=== PATIENT | female | born 1930 | race Caucasian/White ===

== ENCOUNTER 2016-06-13 09:00 | Emergency (ER) | payer MEDICARE, OTHER ==
[~2016-06-13 09:00] MED LIST: A/D ZINC OXI TOP; ACET500CAP PO; ALAVERT10 MG PO; ALTA2.5 PO; AMB5 PO; APRES25 PO; ARMOUR THYRO60 MG PO; ARMOUR THYROID; ASAB PO; Armour Thyroid; B COMPLETE PO; B COMPLEX-C PO; BAYER500 MG PO; BETAPACE80 PO; BRILINTA90 MG PO; BUM2 PO; C1 PO; C2 PO; C25 PO; CALCIUM PO; CARD30 PO; CAT2 PO; COLCH6 PO; COUMADIN3 MG PO; COUMADIN4 MG PO; Calcium PO; DIGITEK0.125 MG PO; FISH-EPA1000 MG PO; FLAG500TAB PO; FLORASTOR250 MG PO; GLUCXL2.5 PO; HALF81 PO; HUMULIN R1 ML SC; JANTOVEN2 MG PO; KLOR-CON 1010 MEQ PO; KLOR-CON20 MEQ PO; KRILL OIL PO; L40 PO; LEVOTHROID25 MCG PO; LOP25 PO; LOP50 PO; MONISTAT 3 VA; MULTIPLE VIT PO; NEPHRO-VITE PO; NEUR100 PO; NITROII5C TOP; NORV5 PO; OCEAN NAS; OS500+D PO; P10 PO; P20 PO; PLAVIX PO; PREM625 PO; PREVALITE4 G1 PO; PROBIOTIC PO; PROTONIX PO; REFRESH OPH; SENTAB PO; T PO; THERGRANM PO; TIROSINT; TIROSINT88 MCG PO; UNKNOWN INSULIN; VANCOCIN HCL125 MG PO; VANCOMYCIN; VITAMIN A PO; VITAMIN B PO; VITAMIN D PO; VITAMIN D1000 UNI1 PO; VITAMIN D400 UNI1 PO; VITC500 PO; Z100 PO; ZANTAC150 MG PO; ZOCOR20 PO; ZOCOR40 PO; ZOFRAN4 PO
[2016-06-13 09:31] LABS: BASOPHILS 0.4 %; BASOPHILS ABSOLUTE 0.03 10/3/uL (0.0-0.16); EOSINOPHILS 1.5 %; EOSINOPHILS ABSOLUTE 0.13 10/3/uL (0.0-0.53); ER CBC TAT 0 Hrs 07 Mins; HEMATOCRIT 35.6 % (36.0-48.0); HEMOGLOBIN 11.5 g/dL (12.0-16.0); IMMATURE GRANULOCYTES 0.4 %; IMMATURE GRANULOCYTES ABSOLUTE 0.03 10/3/uL (0.0-0.11); LYMPHOCYTES 20.7 %; LYMPHOCYTES ABSOLUTE 1.76 10/3/uL (0.67-4.30); MEAN CORPUS HGB CONC 32.3 g/dL (32.0-36.0); MEAN CORPUSCULAR HEMOGLOB 31.1 pg (26.0-34.0); MEAN CORPUSCULAR VOLUME 96.2 fL (80-100); MEAN PLATELET VOLUME 8.8 fL (9.2-13.0); MONOCYTES 7.5 %; MONOCYTES ABSOLUTE 0.64 10/3/uL (0.21-1.20); NEUTROPHILS 69.5 %; PLATELET COUNT 226 10/3/uL (150-400); RBC DISTRIBUTION WIDTH 15.7 % (12.0-16.0); WHITE BLOOD CELLS 8.5 10/3/uL (4.5-10.5)
[2016-06-13 09:32] LABS: MANUAL DIFF NO %
[2016-06-13 09:39] LABS: INTERNATIONAL NORMAL RATI 2.2 UNITS (-); PARTIAL THROMBO TIME 38.3 SEC (22.5-37.2); PROTIME (NOT ORD) 23.9 SEC (12.0-14.5)
[2016-06-13 09:49] LABS: A/G RATIO 0.8 (0.7-1.9); ALBUMIN 3.2 G/DL (3.5-5.0); ALKALINE PHOSPHATASE 75 U/L (45-117); BUN (BLOOD UREA NITROGEN) 43 MG/DL (6-23); CALCIUM, SERUM 9.4 MG/DL (8.5-10.4); CHLORIDE, SERUM 104 MMOL/L (96-112); CO2 (CARBON DIOXIDE) 31 MMOL/L (24-34); CREATININE 1.71 MG/DL (0.55-1.02); GFR AFRICAN AMERICAN 31 ML/MIN (>=60); GFR NON AFRICAN AMERICAN 27 ML/MIN (>=60); GLOBULIN 4.2 G/DL (2.5-4.1); GLUCOSE, SERUM 152 MG/DL (60-99); SGOT(AST) 15 U/L (5-40); SGPT(ALT) 17 U/L (5-65); SODIUM, SERUM 140 MMOL/L (135-148); TOTAL BILIRUBIN 0.3 MG/DL (0-1.2); TOTAL PROTEIN 7.4 G/DL (6.0-8.5); TROPONIN I <0.02 NG/ML (<0.05)
[2016-06-13 11:13] LABS: ASCORBIC ACID (UR NOT ORDER) 20 (NEG); BILIRUBIN, URINE NEGATIVE (NEG); ER URINALYSIS TAT 0 Hrs 13 Mins; KETONE, URINE NEGATIVE (NEG); LEUKOCYTE ESTERASE(NOT OR SMALL (NEG); NITRITE (URINE) NEG (NEG); WBC (NOT ORDERED) (RFLEX) 6 (0-5)
== END 2016-06-13 17:13 | disposition home or self-care (01) ==
LOC: ER 09:00
PROVIDERS: Nurse Practitioner Acute Care
DX: R10.9 Unspecified abdominal pain (principal); B96.89 Other specified bacterial agents as the cause of diseases classified elsewhere; I48.91 Unspecified atrial fibrillation; N18.9 Chronic kidney disease, unspecified; E11.9 Type 2 diabetes mellitus without complications; Z95.5 Presence of coronary angioplasty implant and graft; Z95.1 Presence of aortocoronary bypass graft
CPT/HCPCS: 36415; 74176; 80053; 81001; 82962; 84484; 85025; 85610; 85730; 86850; 86900; 86901; 87077; 87086; 87186; 87493; 87493-59; 99285

== ENCOUNTER 2016-06-17 16:31 | Emergency (ER) | payer MEDICARE, OTHER ==
[2016-06-17 16:50] LABS: WBC (NOT ORDERED) (RFLEX) 0 (0-5)
[2016-06-17 16:53] LABS: BASOPHILS 0.2 %; BASOPHILS ABSOLUTE 0.03 10/3/uL (0.0-0.16); EOSINOPHILS ABSOLUTE 0.12 10/3/uL (0.0-0.53); HEMATOCRIT 33.6 % (36.0-48.0); HEMOGLOBIN 10.8 g/dL (12.0-16.0); IMMATURE GRANULOCYTES 0.2 %; IMMATURE GRANULOCYTES ABSOLUTE 0.03 10/3/uL (0.0-0.11); LYMPHOCYTES 13.9 %; LYMPHOCYTES ABSOLUTE 1.69 10/3/uL (0.67-4.30); MEAN CORPUS HGB CONC 32.1 g/dL (32.0-36.0); MEAN CORPUSCULAR HEMOGLOB 30.5 pg (26.0-34.0); MEAN CORPUSCULAR VOLUME 94.9 fL (80-100); MEAN PLATELET VOLUME 8.8 fL (9.2-13.0); MONOCYTES 6.5 %; MONOCYTES ABSOLUTE 0.79 10/3/uL (0.21-1.20); NEUTROPHILS 78.2 %; NEUTROPHILS ABSOLUTE 9.47 10/3/uL (2.02-8.40); PLATELET COUNT 223 10/3/uL (150-400); RED CELL COUNT 3.54 10/6/uL (4.0-5.6)
[2016-06-17 16:54] LABS: ER CBC TAT 0 Hrs 05 Mins; MANUAL DIFF NO %; WHITE BLOOD CELLS 12.1 10/3/uL (4.5-10.5)
[2016-06-17 16:58] LABS: ASCORBIC ACID (UR NOT ORDER) 40 (NEG); BILIRUBIN, URINE NEGATIVE (NEG); ER URINALYSIS TAT 0 Hrs 09 Mins; KETONE, URINE NEGATIVE (NEG); LEUKOCYTE ESTERASE(NOT OR NEG (NEG); NITRITE (URINE) NEG (NEG)
[2016-06-17 17:08] LABS: A/G RATIO 0.8 (0.7-1.9); ALBUMIN 3.2 G/DL (3.5-5.0); ALKALINE PHOSPHATASE 65 U/L (45-117); BUN (BLOOD UREA NITROGEN) 37 MG/DL (6-23); CALCIUM, SERUM 8.7 MG/DL (8.5-10.4); CHLORIDE, SERUM 108 MMOL/L (96-112); CO2 (CARBON DIOXIDE) 26 MMOL/L (24-34); CREATININE 1.65 MG/DL (0.55-1.02); GFR AFRICAN AMERICAN 33 ML/MIN (>=60); GFR NON AFRICAN AMERICAN 28 ML/MIN (>=60); GLOBULIN 3.9 G/DL (2.5-4.1); GLUCOSE, SERUM 161 MG/DL (60-99); POTASSIUM, SERUM 3.5 MMOL/L (3.5-5.3); SGOT(AST) 13 U/L (5-40); SGPT(ALT) 15 U/L (5-65); SODIUM, SERUM 143 MMOL/L (135-148); TOTAL BILIRUBIN 0.2 MG/DL (0-1.2); TOTAL PROTEIN 7.1 G/DL (6.0-8.5)
== END 2016-06-17 18:55 | disposition home or self-care (01) ==
LOC: ER 16:31
PROVIDERS: Emergency Medicine
DX: A04.7 Enterocolitis due to Clostridium difficile (principal); E11.22 Type 2 diabetes mellitus with diabetic chronic kidney disease; N18.9 Chronic kidney disease, unspecified; D72.829 Elevated white blood cell count, unspecified; Z95.5 Presence of coronary angioplasty implant and graft; Z95.1 Presence of aortocoronary bypass graft; Z88.0 Allergy status to penicillin; Z88.5 Allergy status to narcotic agent; Z88.8 Allergy status to other drugs, medicaments and biological substances; Z79.82 Long term (current) use of aspirin; Z79.899 Other long term (current) drug therapy
CPT/HCPCS: 80053; 81001; 83690; 85025; 87045; 87046; 87046-59; 87328; 87329; 87493; 87493-59; 87899; 87899-59; 89055; 99284; A9270-GY

== ENCOUNTER 2016-07-05 00:20 | Emergency (ER) | payer MEDICARE, OTHER ==
[2016-07-05 01:45] LABS: BASOPHILS 0.4 %; BASOPHILS ABSOLUTE 0.04 10/3/uL (0.0-0.16); EOSINOPHILS 2.8 %; EOSINOPHILS ABSOLUTE 0.25 10/3/uL (0.0-0.53); ER CBC TAT 0 Hrs 03 Mins; HEMATOCRIT 34.6 % (36.0-48.0); HEMOGLOBIN 11.1 g/dL (12.0-16.0); IMMATURE GRANULOCYTES 0.1 %; IMMATURE GRANULOCYTES ABSOLUTE 0.01 10/3/uL (0.0-0.11); LYMPHOCYTES 17.9 %; LYMPHOCYTES ABSOLUTE 1.61 10/3/uL (0.67-4.30); MEAN CORPUS HGB CONC 32.1 g/dL (32.0-36.0); MEAN CORPUSCULAR HEMOGLOB 31.4 pg (26.0-34.0); MEAN CORPUSCULAR VOLUME 97.7 fL (80-100); MEAN PLATELET VOLUME 9.7 fL (9.2-13.0); MONOCYTES 7.3 %; MONOCYTES ABSOLUTE 0.66 10/3/uL (0.21-1.20); NEUTROPHILS 71.5 %; NEUTROPHILS ABSOLUTE 6.44 10/3/uL (2.02-8.40); PLATELET COUNT 193 10/3/uL (150-400); RBC DISTRIBUTION WIDTH 16.4 % (12.0-16.0); RED CELL COUNT 3.54 10/6/uL (4.0-5.6)
[2016-07-05 01:47] LABS: MANUAL DIFF NO %
[2016-07-05 01:53] LABS: INTERNATIONAL NORMAL RATI 2.7 UNITS (-); PARTIAL THROMBO TIME 44.4 SEC (22.5-37.2)
[2016-07-05 01:55] LABS: PROTIME (NOT ORD) 28.7 SEC (12.0-14.5)
[2016-07-05 02:09] LABS: CALCIUM, SERUM 8.8 MG/DL (8.5-10.4); CHEST PAIN PROFILE TAT 0 Hrs 27 Mins; CHLORIDE, SERUM 109 MMOL/L (96-112); CO2 (CARBON DIOXIDE) 27 MMOL/L (24-34); CREATININE 1.29 MG/DL (0.55-1.02); GFR AFRICAN AMERICAN 44 ML/MIN (>=60); GFR NON AFRICAN AMERICAN 38 ML/MIN (>=60); GLUCOSE, SERUM 170 MG/DL (60-99); POTASSIUM, SERUM 3.7 MMOL/L (3.5-5.3); SODIUM, SERUM 147 MMOL/L (135-148); TROPONIN I <0.02 NG/ML (<0.05)
[2016-07-05 02:10] LABS: BUN (BLOOD UREA NITROGEN) 27 MG/DL (6-23)
== END 2016-07-05 05:53 | disposition home or self-care (01) ==
LOC: ER 00:20
PROVIDERS: Specialist
PROC: 2W3QX1Z Immobilization of Right Lower Leg using Splint (ICD-10-PCS; principal; 2016-07-05)
DX: M25.461 Effusion, right knee (principal); R60.0 Localized edema; Z86.718 Personal history of other venous thrombosis and embolism; E11.22 Type 2 diabetes mellitus with diabetic chronic kidney disease; I12.9 Hypertensive chronic kidney disease with stage 1 through stage 4 chronic kidney disease, or unspecified chronic kidney disease; N18.9 Chronic kidney disease, unspecified; D64.9 Anemia, unspecified; Z88.0 Allergy status to penicillin; Z88.5 Allergy status to narcotic agent; Z88.8 Allergy status to other drugs, medicaments and biological substances; Z88.6 Allergy status to analgesic agent; Z79.82 Long term (current) use of aspirin; Z79.899 Other long term (current) drug therapy; Z79.01 Long term (current) use of anticoagulants
CPT/HCPCS: 80048; 83735; 83880; 84484; 85025; 85610; 85730; 93005; 93971; 99285; A9270-GY

== ENCOUNTER 2016-07-23 10:24 | Inpatient (IN) | payer MEDICARE, OTHER ==
--- NOTE | ~2016-07-23 | HP ---
History And Physical [place] [address] [place]. [address] NAME: KASSIDY GARNER : 32 STATUS : ADM IN [facility]#: [id number] AGE: 85 ADM/REG DATE : 07/23/16 MR#: [id number] REPORT SERV DATE: 07/24/16 DICTATED BY: PATRIZIA ROBERTS DATE: 07/24/16 REPORT STATUS : Draft TRANSCRIBED BY: ANTOINE DATE: 07/24/16 DATE OF ADMISSION: 07/23/2016 CHIEF COMPLAINT: Right knee pain. HISTORY: This is an 85-year-old female who states "I have always had trouble with that knee" unfortunately over the last month with some twisting episodes, previously had an aspirate of the knee, attempted another ER about a month ago with no result. I have reviewed her chart at length and see if there is some concern for her leukocytosis and other concern for infection. She says actually her knee is somewhat better than it was a month ago. ALLERGIES: PENICILLIN, CODEINE, EPINEPHRINE, INDOMETHACIN, CLINORIL, LESCOL, DEMEROL, METFORMIN, AND CEFUROXIME. MEDICATIONS: See chart. PAST MEDICAL HISTORY: Migraines, cataracts wears glasses, CPAP and had a recurrent pneumonia, bronchitis, pleural effusions, coronary artery disease, hypertension, GERD, cellulitis, diabetes, and hypothyroidism. PAST SURGICAL HISTORY: Multiple include hysterectomy, endarterectomy, ectopic , heart stents, pacer placement in aortic valve, mitral valve, and bypass surgery x2. SOCIAL HISTORY: Social situation glasses. No cigarettes, alcohol, or illicit drug use. FAMILY HISTORY: No known anesthetic complications REVIEW OF SYSTEMS: As above. PHYSICAL EXAMINATION: GENERAL: She is alert and oriented x3, in no apparent distress. HEENT: Atraumatic, normocephalic. EXTREMITIES: Both upper extremities, left lower extremity without acute trauma. Right knee with moderate effusion, minimal warmth, and no erythema. Skin is intact. Compartment supple. She has severe pain with motion from 0 to 30. NEUROVASCULAR: Without deficit. ASSESSMENT: Right knee questionable sepsis. PLAN: I aspirated her right knee after sterile prep and got 10 mL of fluid which appeared to be shawn blood. There is no evidence of infection. Assessment is right knee hemarthrosis. History And Physical [facility] [address] [place]. [address] NAME: KASSIDY GARNER : 32 STATUS : ADM IN PAT#: [id number] AGE: 85 ADM/REG DATE : 07/23/16 MR#: [id number] REPORT SERV DATE: 07/24/16 DICTATED BY: PATRIZIA ROBERTS DATE: 07/24/16 REPORT STATUS : Draft TRANSCRIBED BY: MODL DATE: 07/24/16 I have recommended symptomatic management for this and evaluation elsewhere for her leukocytosis. WTB/MODL Mykel Roberts M.D. / [id number] CC: Johnnie King PA-C
--- NOTE | ~2016-07-23 | HP ---
History And Physical [place] [facility] [place]. [address] NAME: KASSIDY GARNER : 32 STATUS : ADM IN PAT#: [id number] AGE: 85 ADM/REG DATE : 07/23/16 MR#: [id number] REPORT SERV DATE: 07/23/16 DICTATED BY: ANNA DEWEY DATE: 07/23/16 REPORT STATUS : Draft TRANSCRIBED BY: MODL DATE: 07/23/16 DATE OF ADMISSION: 07/23/2016 REASON FOR ADMISSION: Leukocytosis, dehydration, [id number] renal failure. HISTORY OF PRESENT ILLNESS: This is an 85-year-old white female, who has been lethargic for the last two days. She has not eaten very much. She has continued to take her diuretics. Her became worried about it, he brought her in because of this, and creatinine was certainly elevated above 1.5 to 1.6 range, up to 2.04. She has a significant past medical history and has had C difficile colitis. Most recently, admitted for fecal transplantation, 12/18/2015 to 12/26/2015. Her medical history is complicated with an aortic valvular replacement with mechanical valve and she is on Coumadin for that. Her INR today has not yet been checked by Dr. Rodriguez, who initially evaluated in the emergency room. Dr. Rodriguez was concerned with the elevated white count. He ordered a CT scan of the abdomen that was unrevealing. Chest x-ray shows no infiltrate. says that she has been lethargic the last two days, sleepy, and cannot keep her awake to talk. She is not able to eat. She has not drunk anything in the last 24 hours as well, but she has had no vomiting or diarrhea. PAST MEDICAL HISTORY: She has a pacemaker placed in 2012 as well as the aortic valve and CABG. She has diabetes and is on medication. Her blood sugars usually run in the 130 to 150 range. She has no pain. No headache. No stiff neck. No fever, chills, or night sweats. SOCIAL HISTORY: She has been for 6 years to her present . She was for forty years prior to that. She has two children, they are estranged. She does not smoke or drink. She does not dip snuff. She is a member of the [employer]. She lives in [place]. FAMILY HISTORY: She had two brothers and four sisters. One sister of ovarian cancer, but nearly all the siblings had heart disease and as did mother and father. REVIEW OF SYSTEMS: She denies any eye pain, double vision, loss of vision. No neck stiffness, fever, chills, night sweats, melena, or hematemesis. Last bowel movement was 11 o'clock this morning. She has had some swelling in the lower extremity which is chronic, but no fits, seizures, convulsions, unilateral weakness, fever, chills, night sweats, nausea, vomiting, or diarrhea. History And Physical [address] [place]. [address] NAME: KASSIDY GARNER : 32 STATUS : ADM IN [facility]#: [id number] AGE: 85 ADM/REG DATE : 07/23/16 MR#: [id number] REPORT SERV DATE: 07/23/16 DICTATED BY: ANNA DEWEY DATE: 07/23/16 REPORT STATUS : Draft TRANSCRIBED BY: ANTOINE DATE: 07/23/16 The remainder of review of systems is negative. She has had no chest pain and is not short of breath. PHYSICAL EXAMINATION: GENERAL: Elderly white female, in no acute distress. HEENT: EOMI. Sclerae clear. Conjunctivae pink. NECK: No bruit. No JVD. CHEST: Clear to A and P. HEART: Irregularly irregular with prosthetic clicking. ABDOMEN: Soft and nontender. Bowel sounds are positive. EXTREMITIES: Have chronic edema in lower extremities with some stasis changes. No distal pulses are palpable. NEUROLOGIC: She moves to plantar stimulation. She is oriented to person, place, and time. She awakens. Speech is cogent, goal directed, somewhat lethargic in appearance. Her senior manufacturing supervisor is equal and symmetric. Coordination is intact. She has no tremor. Sensory is grossly intact bilaterally. LYMPHATICS: There is no adenopathy palpable. SKIN: Stasis changes lower extremities bilaterally. LABORATORY DATA: CT scan of the abdomen was done by Dr. Rodriguez that showed no evidence of any acute abnormality in the abdomen and pelvis. She does have cholecystectomy and hysterectomy in the past, diverticulosis without diverticulitis. Her urinalysis showed two white cells per high-powered field, nitrite negative, leukocyte esterase negative, specific gravity 1.016, pH 5. Portable chest x-ray showed no evidence of acute disease. The BNP was elevated at 387.8 and ammonia level was 21. Lactate level 1.6. The comprehensive metabolic panel showed sodium 137, potassium 3.8, creatinine 2.04, the BUN is 46, the glucose is 202. Albumin is 3.3 with globulin high at 4.3. Liver tests were normal. Troponin less than 0.02. EKG shows paced rhythm. Chest x-ray and EKG were reviewed by myself. ASSESSMENT: 1. Weakness and sleepiness four days building to present state. I believe she is dehydrated with increasing creatinine suspicious for renal failure. I am going to go ahead hold the lisinopril and the diuretics, hydrate gently with normal saline of 50 mL an hour. 2. Leukocytosis, 23,000, not apparent yet. We will check blood cultures, but not give her empiric antibiotics. According to the nurse manager of production, she was given Levaquin for suspected urinary tract infection, that will be a one-time dose. 3. Diabetes type 2. Blood sugars were elevated in the period, higher than usual at home after drinking Glucerna. 4. Anorexia, one-week duration. 5. Acute renal failure. Usual creatinine in the 1.5 to 1.6 range, now 2.04. 6. Pacemaker. 7. Elevated BNP, may be from the atrial irritation of the pacemaker. 8. Poor p.o. intake. 9. 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 Will use History And Physical [address] [address] NAME: KASSIDY GARNER : 32 STATUS : ADM IN PAT#: [id number] AGE: 85 ADM/REG DATE : 07/23/16 MR#: [id number] REPORT SERV DATE: 07/23/16 DICTATED BY: ANNA DEWEY DATE: 07/23/16 REPORT STATUS : Draft TRANSCRIBED BY: MODKatheryn DATE: 07/23/16 prophylactic vancomycin since she got a dose of Levaquin. 10.History of aortic valvular replacement. 11.Coagulopathy, on Coumadin for the heart valve, have to try to keep it above 2.5 up to 3.5. PLAN: We will hydrate gently, hold offending agents, reassess the white count and blood work tomorrow. DB/MODL Anna Dewey M.D. / [id number] CC: Johnnie King PA-C Siobhan Duff, M.D. Alexander Stratienko, M.D. Michael C Allan, M.D.
--- NOTE | ~2016-07-23 | DS ---
Discharge Summary [place] [address] [place]. [address] NAME: KASSIDY GARNER : 32 STATUS : DIS IN PAT#: [id number] AGE: 85 ADM/REG DATE : 07/23/16 MR#: [id number] REPORT SERV DATE: 07/30/16 DICTATED BY: DATE: REPORT STATUS : Draft TRANSCRIBED BY: MODL DATE: 07/29/16 ADMISSION DATE: 07/23/2016 DISCHARGE DATE: 07/29/2016 DISCHARGE DIAGNOSES: 1. Recurrent C. diff. 2. Volume overload, resolved. 3. Chronic kidney disease, stage III. 4. Chronic anemia. 5. Chronic atrial fibrillation. 6. Type 2 diabetes mellitus, chronic. 7. History of tissue aortic valve replacement. 8. Coronary artery disease history. 9. Debility. CONSULTATIONS: Dr. Bassam Renae, orthopedist. PERTINENT TESTS AND PROCEDURES: 1. Chest x-ray, 07/23/2016, impression: Lung balderas are clear. No pneumothorax. No acute cardiopulmonary process is evident. 2. CT of the abdomen and pelvis, 07/23/2016, impression:. a. No evidence of acute abnormality within the abdomen or pelvis. b. Cardiac surgical changes. Pacemaker. Calcific arthrosclerosis. c. Cholecystectomy. d. Hysterectomy. e. Diverticulosis with no evidence of diverticulitis. 3. Chest x-ray, 07/28/2016, impression: Venous congestion with bibasilar atelectasis/consolidation and small bilateral pleural effusions. Status post CABG and pacemaker placement. 4. Blood cultures x2 sites collected on July 23, final result: No growth at four days. 5. Fluid collected from right knee aspiration, 07/24/2016, final culture result: No growth at 3 days. Final Gram stain: Rare white blood cells, no microorganism seen. 6. Stool studies specimen collected July 29, final result: C. difficile by PCR negative. HOSPITAL COURSE: Please refer to history and physical dated 07/23/[address] Anand Lopez for complete details pertaining to patient's initial presentation upon admission and health history. Also refer to consultation dated 07/24/[address] Bassam Renae, Orthopedics. Briefly, the patient is an 85-year-old female with a past medical history significant for recurrent C. diff, status post fecal transplantation in December 2015; tissue aortic valvular replacement; coronary artery disease with history of stents/CABG/tissue AVR/mitral valve repair; chronic kidney disease, stage III; atrial fibrillation; and hypertension. The patient presented to the emergency department on July 23 with complaints of lethargy, Discharge Summary [place] [address] [place]. [address] NAME: KASSIDY GARNER : 32 STATUS : DIS IN PAT#: [id number] AGE: 85 ADM/REG DATE : 07/23/16 MR#: [id number] REPORT SERV DATE: 07/30/16 DICTATED BY: DATE: REPORT STATUS : Draft TRANSCRIBED BY: MODL DATE: 07/29/16 decreased appetite, and concern for dehydration. Initial diagnostic evaluation included CBC, which reported white blood cell count to be elevated at 23,000. There was also concern for acute kidney injury in the setting of chronic kidney disease, stage III as the patient's creatinine was reported to be 2.4 with baseline ranging between 1.5 and 1.6. The patient was admitted for further evaluation and treatment. 1. C. diff, recurrent. The patient has a significant history for recurrent C. diff and is status post fecal transplantation in December 2015. The patient recently completed several weeks of Vancocin p.o. outpatient prior to this admission secondary to recurrence of watery stool, believed to be associated with one time dose of Levaquin to treat possible UTI. Stool specimen was not tested for C. diff during this admission secondary to formed stool. However, patient's stool was sent today and result was C. diff negative. Dr. Morris, Infectious Disease, was consulted during this admission for recommendations to include vancomycin dosing. It was recommended to redo tapering dose due to significant history of recurrence, status post transplantation, and patient's advanced age. The patient started over with a tapering dose on July 28 and will continue through September 05. The patient has had no episodes of diarrhea during this admission, producing one to two formed stools daily. The patient's white blood count has returned to normal since restarting Vancocin. Dr. Edie Perla GI was notified of treatment plan and she agreed. The patient will follow up with Dr. Perla in August. 2. Acute volume overload. The patient's diuretics were held upon admission secondary to acute kidney injury on chronic kidney disease. The patient's BNP was elevated yesterday with significant weight gain. The patient received Lasix 40 mg IV b.i.d. yesterday and responded well to treatment. The patient initially complained of shortness of breath, which has since resolved. After diuresing, restart home diuretic upon discharge. 3. Chronic kidney disease, stage III. Upon admission, the patient's creatinine was elevated from baseline which ranges between 1.5 and 1.6. Creatinine has returned to normal and is 1.3 on the day of discharge. The patient will follow up with Dr. Pabon in Nephrology, appointment time and date is pending. 4. Chronic anemia. This is secondary to chronic disease. The patient has not required any transfusions, and hemoglobin and hematocrit are stable at 9.3 and 29.2. 5. Chronic atrial fibrillation. The patient had dual-chamber pacemaker placed in 2012. Rate has been controlled during this admission. Follow up with Cardiology. 6. History of tissue aortic valvular replacement. The patient is on chronic anticoagulation therapy with Coumadin. The patient will follow up with Dr. Blake's office no later than August 02 for INR check. 7. History of coronary artery disease. The patient is status post stenting of coronary artery bypass grafting, mitral valve repair, and tissue AVR. Follow up with Dr. Blake. Condition has remained stable during this admission. 8. Type 2 diabetes. The patient's blood glucoses remained stable with sliding scale insulin. The patient does not take oral medications secondary to adverse reactions. Blood sugars are managed through modification of lifestyle and diet. 9. Debility. This is secondary to multiple comorbidities. The patient will have home health care physical therapy upon discharge. Discharge Summary [address] [address] NAME: KASSIDY GARNER : 32 STATUS : DIS IN PAT#: [id number] AGE: 85 ADM/REG DATE : 07/23/16 MR#: [id number] REPORT SERV DATE: 07/30/16 DICTATED BY: DATE: REPORT STATUS : Draft TRANSCRIBED BY: MODL DATE: 07/29/16 10.Right knee pain, resolved. The patient was evaluated by Dr. Renae during this admission to rule out questionable right knee sepsis. Approximately 2 mL of blood was aspirated from her right knee with no evidence of infection, culture was negative. It is believed the patient injured knee during recent exercise. No additional intervention is indicated. DISCHARGE CONDITION: At the time of discharge, the patient is hemodynamically stable. DISCHARGE DIET: 1800 calorie ADA diet. DISCHARGE MEDICATIONS: 1. Vancocin 125 mg per 5 mL liquid per titrating dose to be given through September 05. 2. Allopurinol 100 mg p.o. daily. 3. Norvasc 5 mg tablet p.o. daily. 4. Aspirin 81 mg tablet p.o. daily. 5. Vitamin B12 of 1000 mcg p.o. daily. 6. Vitamin D 1000 units p.o. daily. 7. Digoxin 125 mcg p.o. daily. 8. Cardizem 30 mg tablet p.o. daily at bedtime. 9. Premarin 0.625 mg tablet p.o. three times weekly. 10.Neurontin 100 mg tablet p.o. daily every a.m. 11.Neurontin 100 mg tablet, take 200 mg p.o. every night. 12.Prinivil 5 mg tablet p.o. daily. 13.Protonix 40 mg tablet p.o. twice daily. 14.Florastor 250 mg tablet p.o. daily. 15.EnteraGam 5 mg p.o. daily. 16.Simvastatin 40 mg tablet p.o. daily at bedtime. 17.Betapace 80 mg tablet, take 40 mg p.o. twice daily. 18.Coumadin 2.5 mg tablet p.o. daily to be managed per outpatient INR Clinic provided by Dr. Blake's office. 19.Tylenol 325 mg tablet p.o. every six hours as needed. 20.Lmpb-zih-bynxtob [place] Nasal [place] one spray in each nostril as needed. 21.Levothyroxine sodium 25 mcg tablet p.o. every fourth day. 22.Lasix 40 mg tablet p.o. twice daily. 23.CeraVe lotion [id number] apply to arms and legs daily. DISCHARGE INSTRUCTIONS: 1. Follow up with Dr. Perla GI. Appointment is scheduled for August. 2. Follow up with Dr. Pabon, Nephrology within two weeks. Appointment date and time pending. 3. Follow up with Dr. Herring, primary care as needed for management of comorbidities to include type 2 diabetes. 4. Follow up with INR Clinic and Dr. Blake's office no later than 08/02/2016, appointment date and time pending. The patient was educated to refrain from taking any unnecessary antibiotics. The patient was advised to educate all of her healthcare providers that she has a history of recurrent C. diff, status post fecal transplantation. The patient was educated to return to the Discharge Summary [address] [address] NAME: KASSIDY GARNER : 32 STATUS : DIS IN PAT#: [id number] AGE: 85 ADM/REG DATE : 07/23/16 MR#: [id number] REPORT SERV DATE: 07/30/16 DICTATED BY: DATE: REPORT STATUS : Draft TRANSCRIBED BY: ANTOINE DATE: 07/29/16 emergency department for any acute onset of temperature of 100.4 or greater lasting more than one hour with recurrence of uncontrolled diarrhea, abdominal pain, intractable nausea, vomiting, shortness of breath, chest pain, or any other health concerns that are deviations from her baseline status at the time of this discharge. PRIMARY PRICE ACCURACY SUPERVISOR: Dr. Leonides Pabon. PRIMARY GI: Dr. Edie Perla. PRIMARY TRANSIT AUTHORITY POLICE OFFICER: Dr. Blake. DICTATED BY: ROSA Palmer [facility]/ANTOINE ORSA Palmer / [id number] CC: MD Emiliano Sinclair II, PA-C
[2016-07-23 10:05] LABS: ER CBC TAT 0 Hrs 03 Mins; HEMATOCRIT 35.2 % (36.0-48.0); HEMOGLOBIN 11.1 g/dL (12.0-16.0); MANUAL DIFF YES %; MEAN CORPUS HGB CONC 31.5 g/dL (32.0-36.0); MEAN CORPUSCULAR HEMOGLOB 30.7 pg (26.0-34.0); MEAN CORPUSCULAR VOLUME 97.2 fL (80-100); MEAN PLATELET VOLUME 9.2 fL (9.2-13.0); PLATELET COUNT 272 10/3/uL (150-400); RBC DISTRIBUTION WIDTH 15.7 % (12.0-16.0); RED CELL COUNT 3.62 10/6/uL (4.0-5.6); WHITE BLOOD CELLS 23.3 10/3/uL (4.5-10.5)
[2016-07-23 10:25] LABS: A/G RATIO 0.7 (0.7-1.9); ALBUMIN 3.2 G/DL (3.5-5.0); ALKALINE PHOSPHATASE 72 U/L (45-117); BUN (BLOOD UREA NITROGEN) 46 MG/DL (6-23); CALCIUM, SERUM 9.1 MG/DL (8.5-10.4); CHLORIDE, SERUM 104 MMOL/L (96-112); CO2 (CARBON DIOXIDE) 27 MMOL/L (24-34); CREATININE 2.04 MG/DL (0.55-1.02); GFR AFRICAN AMERICAN 25 ML/MIN (>=60); GFR NON AFRICAN AMERICAN 22 ML/MIN (>=60); GLOBULIN 4.3 G/DL (2.5-4.1); GLUCOSE, SERUM 202 MG/DL (60-99); POTASSIUM, SERUM 3.8 MMOL/L (3.5-5.3); SGOT(AST) 17 U/L (5-40); SGPT(ALT) 19 U/L (5-65); SODIUM, SERUM 137 MMOL/L (135-148); TOTAL BILIRUBIN 0.3 MG/DL (0-1.2); TOTAL PROTEIN 7.5 G/DL (6.0-8.5); TROPONIN I <0.02 NG/ML (<0.05)
[2016-07-23 10:30] LABS: BAND NEUTROPHILS 2 %; ER DIFF TAT 0 Hrs 28 Mins; LYMPHOCYTES 9 %; MONOCYTES 9 %; NEUTROPHILS ABSOLUTE (CALC) 19.11 10/3/uL (2.02-8.40); SEGMENTED NEUTROPHIL (0) 80 %; TOTAL NUCLEATED CELLS 100
[2016-07-23 10:31] LABS: PLATELET ESTIMATE ADQ (ADEQUATE); RBC MORPHOLOGY NORM (NORMAL)
[2016-07-23 10:44] LABS: B NATRIURETIC PEPTIDE (BNP) 387.8 PG/ML (< 100.0)
[2016-07-23] MEDS ORDERED: Z100 PO (11:31)
[2016-07-23] MEDS ORDERED: TIROSINT25 MCG PO (11:37)
[2016-07-23] MEDS ORDERED: LAN125 PO (11:37)
[2016-07-23] MEDS ORDERED: HALF81 PO (11:37)
[2016-07-23] MEDS ORDERED: CARD30 PO (11:38)
[2016-07-23] MEDS ORDERED: FLORASTOR250 MG PO (11:38)
[2016-07-23] MEDS ORDERED: NEUR100 PO ×2 (11:39→11:40)
[2016-07-23] MEDS ORDERED: L40 PO (11:39)
[2016-07-23] MEDS ORDERED: PRIN5 PO (11:44)
[2016-07-23] MEDS ORDERED: NORV5 PO (11:44)
[2016-07-23] MEDS ORDERED: PREM625 PO (11:45)
[2016-07-23] MEDS ORDERED: ZOCOR40 PO (11:47)
[2016-07-23] MEDS ORDERED: BETAPACE80 PO (11:48)
[2016-07-23] MEDS ORDERED: CYANO1000T PO (11:49)
[2016-07-23] MEDS ORDERED: VITAMIN D1000 UNI1 PO (11:51)
[2016-07-23] MEDS ORDERED: C25 PO (11:52)
[2016-07-23] MEDS ORDERED: ENTERAGAM PO (11:59)
[2016-07-23] MEDS ORDERED: T PO (12:00)
[2016-07-23] MEDS ORDERED: PROTONIX PO (12:01)
[2016-07-23] MEDS ORDERED: VANCOMYCIN PO (12:05)
[2016-07-23 12:24] LABS: ASCORBIC ACID (UR NOT ORDER) 40 (NEG); BILIRUBIN, URINE NEGATIVE (NEG); ER URINALYSIS TAT 0 Hrs 18 Mins; KETONE, URINE NEGATIVE (NEG); LEUKOCYTE ESTERASE(NOT OR NEG (NEG); NITRITE (URINE) NEG (NEG); WBC (NOT ORDERED) (RFLEX) 2 (0-5)
[2016-07-23 16:47] LABS: DIGOXIN 0.2 NG/ML (0.8-2.0)
[2016-07-23 17:11] LABS: INTERNATIONAL NORMAL RATI 2.8 UNITS (-); PROTIME (NOT ORD) 29.4 SEC (12.0-14.5)
[2016-07-24 05:28] LABS: HEMATOCRIT 32.4 % (36.0-48.0); HEMOGLOBIN 10.2 g/dL (12.0-16.0); MEAN CORPUS HGB CONC 31.5 g/dL (32.0-36.0); MEAN CORPUSCULAR HEMOGLOB 30.3 pg (26.0-34.0); MEAN CORPUSCULAR VOLUME 96.1 fL (80-100); MEAN PLATELET VOLUME 9.2 fL (9.2-13.0); PLATELET COUNT 237 10/3/uL (150-400); RBC DISTRIBUTION WIDTH 15.7 % (12.0-16.0); RED CELL COUNT 3.37 10/6/uL (4.0-5.6); WHITE BLOOD CELLS 23.9 10/3/uL (4.5-10.5)
[2016-07-24 05:35] LABS: BUN (BLOOD UREA NITROGEN) 43 MG/DL (6-23); CALCIUM, SERUM 8.8 MG/DL (8.5-10.4); CHLORIDE, SERUM 106 MMOL/L (96-112); CO2 (CARBON DIOXIDE) 27 MMOL/L (24-34); CREATININE 1.91 MG/DL (0.55-1.02); GFR AFRICAN AMERICAN 27 ML/MIN (>=60); GFR NON AFRICAN AMERICAN 24 ML/MIN (>=60); GLUCOSE, SERUM 152 MG/DL (60-99); POTASSIUM, SERUM 3.9 MMOL/L (3.5-5.3); SODIUM, SERUM 142 MMOL/L (135-148)
[2016-07-24 05:37] LABS: INTERNATIONAL NORMAL RATI 3.7 UNITS (-)
[2016-07-24 05:44] LABS: PROTIME (NOT ORD) 36.1 SEC (12.0-14.5)
[2016-07-24 05:48] LABS: MANUAL DIFF YES %
[2016-07-24 06:06] LABS: PROCALCITONIN 0.47 ng/mL (<0.5)
[2016-07-24 07:11] LABS: BAND NEUTROPHILS 2 %; LYMPHOCYTES 6 %; LYMPHOCYTES ABSOLUTE (CALC) 1.43 10/3/uL (0.67-4.30); MONOCYTES 5 %; NEUTROPHILS ABSOLUTE (CALC) 21.27 10/3/uL (2.02-8.40); PLATELET ESTIMATE ADQ (ADEQUATE); RBC MORPHOLOGY NORM (NORMAL); SEGMENTED NEUTROPHIL (0) 87 %; TOTAL NUCLEATED CELLS 100
[2016-07-24 17:55] LABS: BD FL LYMPH (NOT ORD) 51 %; BD FL SOURCE (NOT ORD) KNEE FLUID; BF BASO (NOT OF) 0 %; BF LARGE MONONUCLEAR 17 %; BF TOTAL CELL CT (NOT ORD 7131 /MM3; BODY FLUID EOS (NOT ORD) 3 %; BODY FLUID SEG (NOT ORD) 29 %
[2016-07-24 17:58] LABS: BODY FLUID RBC (NOT ORD) 2462000 /MM3
[2016-07-25 06:22] LABS: INTERNATIONAL NORMAL RATI 4.2 UNITS (-); PROTIME (NOT ORD) 40.3 SEC (12.0-14.5)
[2016-07-25 06:25] LABS: BASOPHILS 0.1 %; BASOPHILS ABSOLUTE 0.02 10/3/uL (0.0-0.16); CALCIUM, SERUM 8.6 MG/DL (8.5-10.4); CHLORIDE, SERUM 109 MMOL/L (96-112); CO2 (CARBON DIOXIDE) 26 MMOL/L (24-34); CREATININE 1.75 MG/DL (0.55-1.02); EOSINOPHILS 0.6 %; EOSINOPHILS ABSOLUTE 0.11 10/3/uL (0.0-0.53); GFR AFRICAN AMERICAN 30 ML/MIN (>=60); GFR NON AFRICAN AMERICAN 26 ML/MIN (>=60); HEMOGLOBIN 9.9 g/dL (12.0-16.0); IMMATURE GRANULOCYTES 0.3 %; IMMATURE GRANULOCYTES ABSOLUTE 0.05 10/3/uL (0.0-0.11); LYMPHOCYTES 7.6 %; MEAN CORPUS HGB CONC 31.9 g/dL (32.0-36.0); MEAN CORPUSCULAR HEMOGLOB 30.4 pg (26.0-34.0); MEAN CORPUSCULAR VOLUME 95.1 fL (80-100); MEAN PLATELET VOLUME 8.9 fL (9.2-13.0); MONOCYTES 5.2 %; MONOCYTES ABSOLUTE 0.96 10/3/uL (0.21-1.20); NEUTROPHILS 86.2 %; NEUTROPHILS ABSOLUTE 15.94 10/3/uL (2.02-8.40); PLATELET COUNT 220 10/3/uL (150-400); POTASSIUM, SERUM 3.6 MMOL/L (3.5-5.3); RBC DISTRIBUTION WIDTH 15.6 % (12.0-16.0); RED CELL COUNT 3.26 10/6/uL (4.0-5.6); SODIUM, SERUM 141 MMOL/L (135-148); WHITE BLOOD CELLS 18.5 10/3/uL (4.5-10.5)
[2016-07-25 06:26] LABS: BUN (BLOOD UREA NITROGEN) 38 MG/DL (6-23); GLUCOSE, SERUM 117 MG/DL (60-99)
[2016-07-25 06:27] LABS: MANUAL DIFF NO %
[2016-07-25 07:01] LABS: PROCALCITONIN 0.48 ng/mL (<0.5)
[2016-07-26 04:39] LABS: BASOPHILS 0.2 %; BASOPHILS ABSOLUTE 0.03 10/3/uL (0.0-0.16); EOSINOPHILS 2.6 %; EOSINOPHILS ABSOLUTE 0.35 10/3/uL (0.0-0.53); HEMATOCRIT 30.5 % (36.0-48.0); HEMOGLOBIN 9.9 g/dL (12.0-16.0); IMMATURE GRANULOCYTES 0.5 %; IMMATURE GRANULOCYTES ABSOLUTE 0.07 10/3/uL (0.0-0.11); LYMPHOCYTES 8.5 %; LYMPHOCYTES ABSOLUTE 1.16 10/3/uL (0.67-4.30); MEAN CORPUS HGB CONC 32.5 g/dL (32.0-36.0); MEAN CORPUSCULAR VOLUME 95.6 fL (80-100); MEAN PLATELET VOLUME 9.3 fL (9.2-13.0); MONOCYTES 5.2 %; MONOCYTES ABSOLUTE 0.71 10/3/uL (0.21-1.20); NEUTROPHILS ABSOLUTE 11.25 10/3/uL (2.02-8.40); PLATELET COUNT 232 10/3/uL (150-400); RBC DISTRIBUTION WIDTH 15.4 % (12.0-16.0); RED CELL COUNT 3.19 10/6/uL (4.0-5.6); WHITE BLOOD CELLS 13.6 10/3/uL (4.5-10.5)
[2016-07-26 04:45] LABS: INTERNATIONAL NORMAL RATI 3.6 UNITS (-); PROTIME (NOT ORD) 35.6 SEC (12.0-14.5)
[2016-07-26 04:54] LABS: BUN (BLOOD UREA NITROGEN) 36 MG/DL (6-23); CALCIUM, SERUM 8.3 MG/DL (8.5-10.4); CHLORIDE, SERUM 110 MMOL/L (96-112); CO2 (CARBON DIOXIDE) 24 MMOL/L (24-34); CREATININE 1.53 MG/DL (0.55-1.02); GFR AFRICAN AMERICAN 36 ML/MIN (>=60); GFR NON AFRICAN AMERICAN 31 ML/MIN (>=60); GLUCOSE, SERUM 133 MG/DL (60-99); MANUAL DIFF NO %; POTASSIUM, SERUM 3.8 MMOL/L (3.5-5.3); SODIUM, SERUM 139 MMOL/L (135-148)
[2016-07-27 06:05] LABS: BASOPHILS 0.4 %; BASOPHILS ABSOLUTE 0.03 10/3/uL (0.0-0.16); EOSINOPHILS ABSOLUTE 0.25 10/3/uL (0.0-0.53); HEMATOCRIT 28.8 % (36.0-48.0); HEMOGLOBIN 9.3 g/dL (12.0-16.0); IMMATURE GRANULOCYTES 1.3 %; IMMATURE GRANULOCYTES ABSOLUTE 0.11 10/3/uL (0.0-0.11); LYMPHOCYTES 16.2 %; LYMPHOCYTES ABSOLUTE 1.33 10/3/uL (0.67-4.30); MEAN CORPUS HGB CONC 32.3 g/dL (32.0-36.0); MEAN CORPUSCULAR HEMOGLOB 30.9 pg (26.0-34.0); MEAN CORPUSCULAR VOLUME 95.7 fL (80-100); MONOCYTES 6.6 %; MONOCYTES ABSOLUTE 0.54 10/3/uL (0.21-1.20); NEUTROPHILS 72.5 %; NEUTROPHILS ABSOLUTE 5.95 10/3/uL (2.02-8.40); PLATELET COUNT 222 10/3/uL (150-400); RBC DISTRIBUTION WIDTH 15.4 % (12.0-16.0); RED CELL COUNT 3.01 10/6/uL (4.0-5.6); WHITE BLOOD CELLS 8.2 10/3/uL (4.5-10.5)
[2016-07-27 06:06] LABS: MANUAL DIFF NO %
[2016-07-27 06:07] LABS: INTERNATIONAL NORMAL RATI 2.9 UNITS (-); PROTIME (NOT ORD) 29.8 SEC (12.0-14.5)
[2016-07-27 06:15] LABS: BUN (BLOOD UREA NITROGEN) 25 MG/DL (6-23); CALCIUM, SERUM 8.3 MG/DL (8.5-10.4); CHLORIDE, SERUM 115 MMOL/L (96-112); CO2 (CARBON DIOXIDE) 21 MMOL/L (24-34); GFR AFRICAN AMERICAN 44 ML/MIN (>=60); GFR NON AFRICAN AMERICAN 38 ML/MIN (>=60); GLUCOSE, SERUM 114 MG/DL (60-99); SODIUM, SERUM 142 MMOL/L (135-148)
[2016-07-28 05:11] LABS: BASOPHILS 0.4 %; BASOPHILS ABSOLUTE 0.03 10/3/uL (0.0-0.16); EOSINOPHILS 2.8 %; EOSINOPHILS ABSOLUTE 0.22 10/3/uL (0.0-0.53); HEMATOCRIT 27.2 % (36.0-48.0); HEMOGLOBIN 8.9 g/dL (12.0-16.0); IMMATURE GRANULOCYTES 1.3 %; LYMPHOCYTES 19.8 %; LYMPHOCYTES ABSOLUTE 1.54 10/3/uL (0.67-4.30); MEAN CORPUS HGB CONC 32.7 g/dL (32.0-36.0); MEAN CORPUSCULAR HEMOGLOB 31.1 pg (26.0-34.0); MEAN CORPUSCULAR VOLUME 95.1 fL (80-100); MEAN PLATELET VOLUME 8.6 fL (9.2-13.0); MONOCYTES 7.2 %; MONOCYTES ABSOLUTE 0.56 10/3/uL (0.21-1.20); NEUTROPHILS 68.5 %; NEUTROPHILS ABSOLUTE 5.34 10/3/uL (2.02-8.40); PLATELET COUNT 210 10/3/uL (150-400); RBC DISTRIBUTION WIDTH 15.5 % (12.0-16.0); RED CELL COUNT 2.86 10/6/uL (4.0-5.6); WHITE BLOOD CELLS 7.8 10/3/uL (4.5-10.5)
[2016-07-28 05:15] LABS: MANUAL DIFF NO %
[2016-07-28 05:16] LABS: INTERNATIONAL NORMAL RATI 2.3 UNITS (-)
[2016-07-28 05:18] LABS: PROTIME (NOT ORD) 24.7 SEC (12.0-14.5)
[2016-07-28 05:19] LABS: BUN (BLOOD UREA NITROGEN) 20 MG/DL (6-23); CALCIUM, SERUM 8.4 MG/DL (8.5-10.4); CHLORIDE, SERUM 116 MMOL/L (96-112); CO2 (CARBON DIOXIDE) 19 MMOL/L (24-34); CREATININE 1.11 MG/DL (0.55-1.02); GFR AFRICAN AMERICAN 53 ML/MIN (>=60); GFR NON AFRICAN AMERICAN 46 ML/MIN (>=60); GLUCOSE, SERUM 88 MG/DL (60-99); POTASSIUM, SERUM 3.9 MMOL/L (3.5-5.3); SODIUM, SERUM 141 MMOL/L (135-148)
[2016-07-29 07:23] LABS: BASOPHILS 0.3 %; BASOPHILS ABSOLUTE 0.03 10/3/uL (0.0-0.16); EOSINOPHILS 3.7 %; EOSINOPHILS ABSOLUTE 0.34 10/3/uL (0.0-0.53); HEMATOCRIT 29.2 % (36.0-48.0); HEMOGLOBIN 9.3 g/dL (12.0-16.0); IMMATURE GRANULOCYTES 2.4 %; IMMATURE GRANULOCYTES ABSOLUTE 0.22 10/3/uL (0.0-0.11); LYMPHOCYTES 17.4 %; LYMPHOCYTES ABSOLUTE 1.58 10/3/uL (0.67-4.30); MEAN CORPUS HGB CONC 31.8 g/dL (32.0-36.0); MEAN CORPUSCULAR VOLUME 94.2 fL (80-100); MEAN PLATELET VOLUME 8.6 fL (9.2-13.0); MONOCYTES ABSOLUTE 0.73 10/3/uL (0.21-1.20); NEUTROPHILS 68.2 %; NEUTROPHILS ABSOLUTE 6.18 10/3/uL (2.02-8.40); PLATELET COUNT 230 10/3/uL (150-400); RBC DISTRIBUTION WIDTH 15.8 % (12.0-16.0); WHITE BLOOD CELLS 9.1 10/3/uL (4.5-10.5)
[2016-07-29 07:24] LABS: MANUAL DIFF NO %
[2016-07-29 07:27] LABS: INTERNATIONAL NORMAL RATI 1.7 UNITS (-)
[2016-07-29 07:28] LABS: CHLORIDE, SERUM 109 MMOL/L (96-112); POTASSIUM, SERUM 3.7 MMOL/L (3.5-5.3); SODIUM, SERUM 140 MMOL/L (135-148)
[2016-07-29 07:35] LABS: BUN (BLOOD UREA NITROGEN) 20 MG/DL (6-23); CALCIUM, SERUM 8.3 MG/DL (8.5-10.4); CO2 (CARBON DIOXIDE) 24 MMOL/L (24-34); GFR AFRICAN AMERICAN 44 ML/MIN (>=60); GFR NON AFRICAN AMERICAN 38 ML/MIN (>=60); GLUCOSE, SERUM 108 MG/DL (60-99)
== END 2016-07-29 15:58 | disposition home health service (06) | DRG 682 ==
LOC: ER 10:24 → 7NO 14:00
PROVIDERS: Emergency Medicine; Internal Medicine; Nurse Practitioner Family; Specialist
PROC: 0S9C3ZX Drainage of Right Knee Joint, Percutaneous Approach, Diagnostic (ICD-10-PCS; principal; 2016-07-23)
DX: N17.9 Acute kidney failure, unspecified (principal); G92 Toxic encephalopathy; A04.7 Enterocolitis due to Clostridium difficile; D68.4 Acquired coagulation factor deficiency; E11.40 Type 2 diabetes mellitus with diabetic neuropathy, unspecified; E11.22 Type 2 diabetes mellitus with diabetic chronic kidney disease; E86.0 Dehydration; I48.2 Chronic atrial fibrillation; E87.70 Fluid overload, unspecified; M25.061 Hemarthrosis, right knee; N18.3 Chronic kidney disease, stage 3 (moderate); E11.9 Type 2 diabetes mellitus without complications; I25.10 Atherosclerotic heart disease of native coronary artery without angina pectoris; Z95.0 Presence of cardiac pacemaker; Z79.01 Long term (current) use of anticoagulants; Z88.0 Allergy status to penicillin; Z88.1 Allergy status to other antibiotic agents; Z87.01 Personal history of pneumonia (recurrent); R62.7 Adult failure to thrive; Z95.1 Presence of aortocoronary bypass graft; E03.9 Hypothyroidism, unspecified; Z95.4 Presence of other heart-valve replacement; Z95.5 Presence of coronary angioplasty implant and graft
CPT/HCPCS: 71010; 74176; 80048; 80053; 80162; 81001; 82140; 82272; 82962; 83605; 83690; 83735; 83880; 84145; 84484; 85025; 85610; 87040; 87070; 87205; 87493; 87493-59; 89051; 93005; 97161-GP; 97530-GP; 99285; A9270-GY; G8978-CK-GP; G8979-CJ-GP; J2405